=== PATIENT | male | born 1945 | race Caucasian/White ===

== ENCOUNTER 2024-04-03 16:19 | Emergency (ER) | payer OTHER, MEDICARE ==
[2024-04-03] MEDS: Bacitracin Oint 1 GM U/D Packet TOP ONE (18:38)
== END 2024-04-03 18:52 | disposition home or self-care (01) ==
LOC: JP.ED 16:19
DX: S62.660B Nondisplaced fracture of distal phalanx of right index finger, initial encounter for open fracture (principal); W23.0XXA Caught, crushed, jammed, or pinched between moving objects, initial encounter
CPT/HCPCS: 73140-26-F6; 73140-F6; 99283